=== PATIENT | male | born 1960 | race Hispanic/Latino ===

== ENCOUNTER 2019-08-15 17:14 | Emergency (ER) | payer BC ==
[2019-08-15 17:33] VITALS: O2SAT 98
[2019-08-15] MEDS ORDERED: SODIUM CHLORIDE 0.9% 1000ML 1,000 ML IVS ONE (17:44)
[2019-08-15] MEDS ORDERED: ONDANSETRON INJ 4 MG/2 ML VIAL IV ONE (17:44)
[2019-08-15] MEDS ORDERED: SODIUM CHLORIDE 0.9% (FLUSH) 10 ML SYG IV PRN (17:44)
--- NOTE | 2019-08-15 18:04 | ED.PDOC ---
History of Present Illness - General Chief Complaint: GI Problem Stated Complaint: diarrhea, rib pain, nausea Time Seen by Provider: 08/15/19 17:35 Information Source: patient, RN notes reviewed, Vital Signs reviewed Exam Limitations: no limitations - History of Present Illness Initial Comments: Patient is a 59-year-old male who presents with complaints of 18 hours of abdominal pain, nausea and associated watery diarrhea. Patient denies any blood in the stool. He also denies any vomiting. The pain is cramping in nature. It waxes and wanes. Eating or drinking seems to make it worse. Nothing seems to make it better. Patient denies any fevers or chills. Patient has no recent travel outside the country. Patient is from [facility] and is up here working laying electrical cable. Abdominal Pain Onset Location: other - Lower abdomen Pain Radiation: no radiation Quality: moderate, cramping, waxing/waning Timing/Duration: other - 18 hours Improving Factors: nothing Worsening Factors: eating Associated Symptoms: diarrhea, nausea/vomiting Review of Systems - Review of Systems Constitutional: States: see HPI, chills, malaise, weakness. Denies: fever EENTM: States: no symptoms reported. Denies: eye pain, blurred vision, double vision, throat pain, throat swelling Respiratory: States: no symptoms reported. Denies: cough, orthopnea, short of breath, wheezing Cardiology: States: no symptoms reported. Denies: chest pain, edema, palpitations, syncope Gastrointestinal/Abdominal: States: see HPI, abdominal pain, diarrhea, nausea. Denies: vomiting Genitourinary: States: see HPI, frequency. Denies: dysuria, hematuria Musculoskeletal: States: back pain, other - Patient with complaints of bilateral rib pain in his lower chest. Skin: States: no symptoms reported. Denies: change in color, rash Neurological: States: see HPI, weakness. Denies: headache, numbness, tingling, tremors Endocrine: States: no symptoms reported Hematologic/Lymphatic: States: no symptoms reported All other Systems: Reviewed and Negative Past Medical History (General) - Patient Medical History Hx Seizures: No Hx Stroke: No Hx Dementia: No Hx Asthma: No Hx of COPD: No Hx Cardiac Disorders: No Hx Congestive Heart Failure: No Hx Hypertension: No Hx Thyroid Disease: No Hx Diabetes: Yes Hx Gastroesophageal Reflux: No Hx Renal Disease: No Hx Cancer: No - Vaccination History Hx Tetanus, Diphtheria Vaccination: No Hx Influenza Vaccination: No - Social History Hx Alcohol Use: Yes Feels Threatened In Home Enviroment: No Feels Threatened In a Relationship: No Hx Physical Abuse: No Hx Emotional Abuse: No Hx Suspected Abuse: No - Activities of Daily Living Hospice Agency (if applicable):: None - Triage Comment ED Triage Comment: Pt speaks very little spanish. Family Medical History - Family History Mother Family History: Unknown Physical Exam - Physical Exam General Appearance: Alert, Anxious, Well Developed, Well Groomed, Well Nourished, Other - Patient with dry mucous membranes. Eyes, Ears, Nose, Throat Exam: PERRL/EOMI, normal ENT inspection, pharynx normal - Except for dry mucous membranes. Neck: non-tender, full range of motion, supple, normal inspection Respiratory: chest non-tender, lungs clear, normal breath sounds, no respiratory distress, no accessory muscle use, respiratory distress Cardiovascular/Chest: normal peripheral pulses, regular rate, rhythm, no edema, no gallop, no JVD, no murmur Peripheral Pulses: No deficit Gastrointestinal/Abdominal: normal bowel sounds, soft, tenderness - Mild discomfort to palpation, lower abdomen. 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 08/15/19 18:30 Patient has now spiked a fever to 101.0, will obtain a COVID test at this time. 08/15/19 21:09 Lab work is all returned. At this point in time it is all negative. COVID is pending. Plan on discharge home with a diagnosis of a viral gastroenteritis. Also with a diagnosis of fever. Will discharge with a prescription for Zofran. Have recommended to patient that he self quarantine until the COVID test is returned. He voices understanding and agreement with the plan of care. Peterson Edge M.D. #[id number] - Results/Orders Results/Orders: EKG performed 15 August 2019 at 1728 hrs.: Normal sinus rhythm at 82 bpm, normal axis deviation, nonspecific T wave changes laterally, abnormal EKG. No comparison EKG available at this time. EXAM DESCRIPTION: Chest,1 View CLINICAL HISTORY:59 years Male, fever Comparison: None FINDINGS: No focal lung consolidation. No pleural effusion. No pneumothorax. Cardiac and mediastinal silhouette is unremarkable. No acute osseous abnormality. Soft tissues are unremarkable. IMPRESSION: No acute findings. No focal lung consolidation. Electronically signed by: Scooby Stiles MD 08/15/2019 8:17 PM 08/15/19 17:44 IV Care:Saline Lock per Protoc QSHIFT FECAL OCCULT BLOOD Stat Sodium Chloride 0.9% (Flush) [Saline Flush Syringe] 10 ml IV PRN PRN STOOL CULTURE Stat CRYPTOSPORIDIA AG,STOOL Stat HELIOBACTER PYLORI AG,STOOL Routine 08/15/19 18:27 EKG .ONCE 08/15/19 18:46 SARS-COV2 RT-PCR HIGH RISK Stat Laboratory Results - last 24 hr 08/15/19 08/15/19 08/15/19 17:57 17:57 19:20 WBC 7.8 RBC 4.72 Hgb 13.9 L Hct 40.8 L MCV 86.4 MCH 29.5 MCHC 34.2 RDW 13.1 Plt Count 177 MPV 8.0 Absolute Neuts (auto) 6.50 Absolute Lymphs (auto) 0.70 L Absolute Monos (auto) 0.50 Absolute Eos (auto) 0.00 Absolute Basos (auto) 0.00 Neutrophils % 83.7 H Lymphocytes % 8.9 L Monocytes % 6.8 Eosinophils % 0.2 L Basophils % 0.4 Sodium 134 L Potassium 3.1 L Chloride 102 Carbon Dioxide 24 Anion Gap 11.1 L BUN 15 Creatinine 0.59 L BUN/Creatinine Ratio 25.4 H Random Glucose 156 H Serum Osmolality 272.3 L Calcium 8.2 L Total Bilirubin 1.3 H Direct Bilirubin 0.2 Indirect Bilirubin 1.1 H AST 19 ALT 20 Alkaline Phosphatase 56 Serum Total Protein 7.0 Albumin 3.9 Lipase 20 L Urine Color Yellow Urine Appearance Clear Urine pH 5.5 Ur Specific [place] 1.025 Urine Protein Negative Urine Glucose (UA) Negative Urine Ketones Negative Urine Blood Negative Urine Nitrite Negative Urine Bilirubin Negative Urine Urobilinogen 0.2 Ur Leukocyte Esterase Negative Urine RBC 0 Urine WBC 0-1 Ur Epithelial Cells 0-1 Amorphous Sediment 2+ Urine Bacteria 0 Urine Mucus Large Vital Signs 08/15/19 08/15/19 08/15/19 17:28 18:15 19:00 Temperature 99.0 F 101.4 F H Pulse Rate [ 88 79 75 monitor] Respiratory 21 21 16 Rate Blood Pressure 123/61 118/62 115/57 [Left Arm] O2 Sat by Pulse 98 98 98 Oximetry 08/15/19 20:00 Temperature Pulse Rate [ 93 H monitor] Respiratory 14 Rate Blood Pressure 129/65 [Left Arm] O2 Sat by Pulse Oximetry Departure - Departure Clinical Impression: Gastroenteritis Fever Qualifiers: Fever type: unspecified Qualified Code(s): R50.9 - Fever, unspecified Time of Disposition: 21:11 Disposition: Discharge to Home or Self Care Condition: Good Departure Forms: ED Discharge - Pt. Copy, Patient Portal Self Enrollment Instructions: Viral Gastroenteritis, Adult (DC), Coronavirus Disease 2019 (COVID-19) Diet: resume usual diet Activity: increase activity as tolerated Prescriptions: Ondansetron [Ondansetron Odt] 4 mg PO Q6H #20 tab Home Medications: Ambulatory Orders Ondansetron [Ondansetron Odt] 4 mg PO Q6H #20 tab 08/15/19 Additional Instructions: Patient self isolate until the COVID testing is back.
--- NOTE | 2019-08-15 20:19 | RAD ---
EXAM DESCRIPTION: Chest,1 View CLINICAL HISTORY:59 years Male, fever Comparison: None FINDINGS: No focal lung consolidation. No pleural effusion. No pneumothorax. Cardiac and mediastinal silhouette is unremarkable. No acute osseous abnormality. Soft tissues are unremarkable. IMPRESSION: No acute findings. No focal lung consolidation. Electronically signed by: Scooby Stiles MD 08/15/2019 8:17 PM CDT
[2019-08-15 21:19] VITALS: BP 119/61
[2019-08-15 21:34] VITALS: TEMP 98.3
== END 2019-08-15 21:34 | disposition home or self-care (01) ==
LOC: ER 17:14
DX: K52.9 Noninfective gastroenteritis and colitis, unspecified (principal); E11.9 Type 2 diabetes mellitus without complications; R50.9 Fever, unspecified
CPT/HCPCS: 36415; 71045; 80048; 80076; 81001; 83690; 85025; 87502; 87635; 93005; A4216; J2405; J7030